=== PATIENT | female | born 1930 | race Hispanic/Latino ===

== ENCOUNTER 2017-05-12 09:25 | Outpatient (CLI) | payer MEDICARE, OTHER ==
--- NOTE | 2017-05-12 10:08 | XRay Report ---
XRAY LEFT SHOULDER THREE VIEWS: 05/12/17 09:25:00 CLINICAL: Left shoulder pain. FINDINGS: Moderate osteopenia. Severe osteoarthritis of the glenohumeral joint with the large inferior osteophyte, irregularity of the glenoid and narrowing of joint space. No fracture or dislocation. Minimal acromioclavicular joint arthritis. Normal soft tissues. IMPRESSION: Severe glenohumeral joint osteoarthritis.
== END 2017-05-12 09:26 | disposition home or self-care (01) ==
LOC: SPVIMAG 09:25 → XRAY 09:25 → SPVIMAG 09:26
PROVIDERS: ATTEND Physical Medicine & Rehabilitation
DX: M19.012 Primary osteoarthritis, left shoulder (principal); M85.812 Other specified disorders of bone density and structure, left shoulder